=== PATIENT | female | born 1980 | race Two or more races ===

== ENCOUNTER 2019-08-26 13:10 | Emergency (ER) | payer MEDICAID, OTHER ==
[~2019-08-26] VITALS: Ht 157.5 cm; Wt 73.0 kg
[2019-08-26 14:42] LABS: CLARITY URINE CLEAR (CLEAR); COLOR URINE YELLOW (YELLOW); KETONES URINE TRACE (NEGATIVE); LEUKOCYTE ESTERASE URINE 1+ (NEGATIVE); NITRITE URINE NEGATIVE (NEGATIVE); OCCULT BLOOD URINE 2+ (NEGATIVE); PROTEIN URINE NEGATIVE (NEGATIVE); SPECIFIC GRAVITY URINE 1.007 (1.005-1.030)
[2019-08-26 15:28] LABS: *BARBITURATES SCREEN URINE NEGATIVE (NEGATIVE); *BENZODIAZEPINES SCREEN URINE NEGATIVE (NEGATIVE); *COCAINE SCREEN URINE NEGATIVE (NEGATIVE); METHADONE URINE SCREEN NEGATIVE (NEGATIVE)
[2019-08-26 15:29] LABS: CHLORIDE 106 mEq/L (98-107)
[2019-08-26 15:29] LABS: *AMPHETAMINES SCREEN URINE NEGATIVE (NEGATIVE); CANNABINOID URINE SCREEN NEGATIVE (NEGATIVE); OPIATES URINE SCREEN NEGATIVE (NEGATIVE); PHENCYCLIDINE URINE SCREEN NEGATIVE (NEGATIVE)
[2019-08-26 15:33] LABS: BASOPHILS % 0.5 % (0.0-2.0); EOSINOPHILS % 0.7 % (0.0-5.0); HEMATOCRIT. 36.7 % (36.0-48.0); HEMOGLOBIN. 12.7 g/dL (12.0-16.0); LYMPHOCYTES % 25.9 % (20.0-50.0); MEAN CORPUSCULAR HEMOGLOBIN 29.2 pg (28.0-32.0); MEAN CORPUSCULAR VOLUME 84.4 fL (81.0-99.0); MEAN PLATELET VOLUME 8.9 fl (7.4-10.4); MONOCYTES % 7.4 % (2.0-8.0); NEUTROPHILS % 65.5 % (40.0-76.0); PLATELET 301 x1000/uL (130-400); RED BLOOD CELL COUNT 4.35 mill/uL (4.2-5.4); RED CELL DISTRIBUTION WIDTH 13.8 % (11.6-14.6)
[2019-08-26 15:54] LABS: B-HCG QUANTITATIVE 37698 mIU/mL (<3)
[2019-08-26] MEDS ORDERED: NITROFURANTOIN 100MG M/M CAPSULE PO ONE (17:30)
[2019-08-26 17:51] VITALS: BP 102/68
== END 2019-08-26 17:52 | disposition home or self-care (01) ==
LOC: ER 13:10
DX: O20.0 Threatened abortion (principal); O23.41 Unspecified infection of urinary tract in pregnancy, first trimester; E87.6 Hypokalemia; E87.1 Hypo-osmolality and hyponatremia; E86.0 Dehydration; Z3A.01 Less than 8 weeks gestation of pregnancy
CPT/HCPCS: 36415; 76801; 80053; 80305; 81003; 81025; 84702; 85025; 86850; 86900; 93005; 99285

== ENCOUNTER 2019-09-29 21:37 | Emergency (ER) | payer OTHER ==
[~2019-09-29] VITALS: Ht 157.5 cm; Wt 64.0 kg
[2019-09-29] MEDS ORDERED: ACETAMINOPHEN 325MG TABLET PO STA (22:22)
[2019-09-29] MEDS ORDERED: ONDANSETRON 4MG ODT PO STA (22:22)
[2019-09-29 22:59] LABS: BASOPHILS % 0.2 % (0.0-2.0); EOSINOPHILS % 1.6 % (0.0-5.0); HEMATOCRIT. 39.7 % (36.0-48.0); HEMOGLOBIN. 13.2 g/dL (12.0-16.0); LYMPHOCYTES % 35.4 % (20.0-50.0); MEAN CORPUSCULAR HEMOGLOBIN 28.1 pg (28.0-32.0); MEAN CORPUSCULAR VOLUME 84.4 fL (81.0-99.0); MEAN PLATELET VOLUME 8.6 fl (7.4-10.4); NEUTROPHILS % 55.8 % (40.0-76.0); PLATELET 336 x1000/uL (130-400); RED BLOOD CELL COUNT 4.71 mill/uL (4.2-5.4); RED CELL DISTRIBUTION WIDTH 13.9 % (11.6-14.6)
[2019-09-29 23:13] LABS: CHLORIDE 102 mEq/L (98-107)
[2019-09-30 01:02] VITALS: BP 120/86
== END 2019-09-30 01:11 | disposition home or self-care (01) ==
LOC: ER 21:37
DX: O02.1 Missed abortion (principal)
CPT/HCPCS: 36415; 80048; 81025; 85025; 93005; 99284; Q0162

== ENCOUNTER 2021-03-27 19:06 | Emergency (ER) | payer OTHER ==
[~2021-03-27] VITALS: Ht 157.5 cm; Wt 68.0 kg
[2021-03-27] MEDS ORDERED: SODIUM CHLORIDE 0.9% 1,000 ML IV ONE ×2 (19:45→22:30)
[2021-03-27] MEDS ORDERED: ONDANSETRON HCL 4MG/2ML INJ IV ONE (19:45)
[2021-03-27 20:42] LABS: BASOPHILS % 0.4 % (0.0-2.0); HEMATOCRIT. 35.8 % (36.0-48.0); HEMOGLOBIN. 12.1 g/dL (12.0-16.0); LYMPHOCYTES % 31.8 % (20.0-50.0); MEAN CORPUSCULAR HEMOGLOBIN 27.4 pg (28.0-32.0); MEAN CORPUSCULAR VOLUME 80.9 fL (81.0-99.0); MEAN PLATELET VOLUME 8.8 fl (7.4-10.4); MONOCYTES % 7.7 % (2.0-8.0); NEUTROPHILS % 59.1 % (40.0-76.0); PLATELET 309 x1000/uL (130-400); RED BLOOD CELL COUNT 4.42 mill/uL (4.2-5.4); RED CELL DISTRIBUTION WIDTH 15.5 % (11.6-14.6)
[2021-03-27 20:43] LABS: CHLORIDE 101 mEq/L (98-107)
[2021-03-27 22:05] LABS: CLARITY URINE CLOUDY (CLEAR); COLOR URINE DARK YELLOW (YELLOW); KETONES URINE TRACE (NEGATIVE); LEUKOCYTE ESTERASE URINE 1+ (NEGATIVE); NITRITE URINE NEGATIVE (NEGATIVE); OCCULT BLOOD URINE TRACE (NEGATIVE); PROTEIN URINE 1+ (NEGATIVE); SPECIFIC GRAVITY URINE 1.025 (1.005-1.030)
[2021-03-27] MEDS ORDERED: ONDANSETRON HCL 4MG/2ML INJ IV STA (22:19)
[2021-03-27] MEDS ORDERED: FAMOTIDINE 20MG/2ML VIAL IV ONE (22:30)
[2021-03-28] MEDS ORDERED: ONDA4TAB11 PO (00:05)
[2021-03-28 02:00] VITALS: BP 98/61
== END 2021-03-28 01:57 | disposition home or self-care (01) ==
LOC: ER 19:06
DX: O23.41 Unspecified infection of urinary tract in pregnancy, first trimester (principal); N39.0 Urinary tract infection, site not specified; Z3A.10 10 weeks gestation of pregnancy
CPT/HCPCS: 36415; 76705; 76801; 76817; 80053; 81003; 83690; 84702; 85025; 86850; 86900; 86901; 93005; 96361; 96374; 96375; 99285; J2405; J3490; J7030

== ENCOUNTER 2021-08-11 18:52 | Observation (INO) | payer OTHER ==
[~2021-08-11] VITALS: Ht 157.5 cm; Wt 66.7 kg
[~2021-08-11 18:52] MED LIST: ONDA4TAB11 PO
[2021-08-11] MEDS ORDERED: ASPI-1497 PO (19:40)
[2021-08-11] MEDS ORDERED: PNV1CAPS46 PO (19:40)
[2021-08-11] MEDS ORDERED: BUTORPHANOL TARTRATE 2 MG/ML VIAL IV PRN (20:38)
[2021-08-11] MEDS: SODIUM CHLORIDE 0.9% 1,000 ML IV SCH ×2 (21:01→21:35)
[2021-08-11 21:09] VITALS: BP 133/71
== END 2021-08-11 22:30 | disposition home or self-care (01) ==
LOC: 8 EST LDRP 18:52
PROVIDERS: ADMIT Specialist; ATTEND Specialist
DX: O26.893 Other specified pregnancy related conditions, third trimester (principal); R10.11 Right upper quadrant pain; K80.80 Other cholelithiasis without obstruction; O62.9 Abnormality of forces of labor, unspecified; O24.419 Gestational diabetes mellitus in pregnancy, unspecified control; Z3A.30 30 weeks gestation of pregnancy
CPT/HCPCS: 59025; 82962; 96361; 96374; J0595; 96360; 99281; G0378